=== PATIENT | male | born 1980 | race Caucasian/White ===

== ENCOUNTER → 2018-03-03 16:15 | Outpatient (CLI) | payer OTHER, SELFPAY ==
[2018-03-03 17:54] LABS: Absolute Lymphocyte Count 1.38 X10^3/ul (0.83-4.51); Absolute Neutrophil Count 5.4 X10^3/uL (2.0-7.7); Basophil# 0.03 X10^3/uL; Basophil% 0.4 % (0-1); Eosinophil# 0.35 X10^3/uL; Eosinophils% 4.4 % (0-5); Hematocrit 40.8 % (40-54); Hemoglobin 13.8 g/dl (13.0-16.5); Lymphocyte # 1.38 X10^3/ul (4.0); Lymphocyte % 17.5 % (19-41); Mean Corp Hgb Conc 33.8 g/gl (32-36); Mean Corpuscular Hgb 30.2 pg (27.0-32.0); Mean Corpuscular Volume 89.3 fL (80-94); Mean Platelet Vol. 8.5 fl (6.2-12.0); Monocyte# 0.76 X10^3/uL; Monocyte% 9.6 % (0-10); Neutrophil # 5.36 X10^3/uL (2.7-7.7); Neutrophil % 67.8 % (47-70); Platelet Count 325 K/mm3 (150-450); RBC Distribution Width SD 38.9 fl (35.1-43.9); Red Blood Count 4.57 M/mm3 (4.6-6.2); White Blood Count 7.9 K/mm3 (4.4-11.0)
[2018-03-03 17:55] LABS: POSITIVE COUNT NO; POSITIVE DIFFERENTIAL NO; POSITIVE MORPHOLOGY NO
[2018-03-03 18:23] LABS: ALB/GLOB Ratio 1.1 RATIO (0.9-2.4); AST(SGOT) 15 U/L (15-37); Alanine Aminotransfer ALT/SGPT 25 U/L (16-61); Albumin, Serum 3.8 g/dL (3.2-5.0); Alkaline Phosphatase 79 U/L (45-117); Anion Gap 9 (5-15); BUN 24 mg/dL (7-18); BUN/Creat Ratio 21.8 RATIO (10-20); Calcium,Total 8.6 mg/dL (8.5-10.1); Chloride 105 mmol/L (98-107); EST Glomerular Filtration Rate 79 mL/min (>60); Est Glom Filt Rate - Afr Amer 96 mL/min (>60); Globulin 3.6 g/dL (2.2-4.2); Glucose 95 mg/dL (74-106); Protein, Total 7.4 g/dL (6.4-8.2); Sodium Level 139 mmol/L (136-145)
--- OUTSIDE RECORDS SUMMARY | 2018-05-06 04:12 | XMS RPT_ITS ---
:1980 Author Organization [facility] Care Team Providers Name Role Phone Miguel Ángel Huffman Attending Unavailable Miguel Ángel Huffman Primary Care Unavailable Amos, Alf Admitting Unavailable Alf Trinidad Referring Unavailable Miguel Ángel Brambila Attending Unavailable Huang Restrepo Unavailable Amos, Alf Admitting Unavailable Miguel Ángel Brambila Attending Unavailable Amos, Alf Referring Unavailable Miguel Ángel Huffman Primary Care Unavailable Miguel Ángel Brambila Consulting Unavailable PROBLEMS PROBLEMS No Problem Records FoundPROCEDURES PROCEDURES No Procedure Records FoundRESULTS RESULTS DISCHARGE SUMMARY Observed: 03/05/2018 Status: F Source: [place] 3:37 PM [facility] RE[facility] Medical Records Department [facility] [address] Discharge Summary 03/05/18 1533 MR#: [id number] Acct: [id number] Name: WADE ANDRADE Rep #: [id number] : 1980 37 From: Miguel Ángel Brambila DO PCP: Miguel Ángel Huffman MD Status: ADM IN Y Location: [place] [id number] Discharge Date and Diagnosis - Problem List Patient Problems: Active and Suspected Problems Foraminal stenosis of cervical region (Acute) Cellulitis of neck (Acute) Date of Admission: 03/05/18 Date of Discharge: 03/05/18 - Primary Discharge Diagnosis Active and Suspected Problems Foraminal stenosis of cervical region (Acute) Cellulitis of neck (Acute) Hospital Course and Treatment Imaging Results: 03/05/18 08:34 MRI Cervical [Spine Cervical (Routine)] [MRI] Urgent Clinical Impression(s) from Imaging Studies Soft Tissue Neck CT 03/05/18 03:00 IMPRESSION: Multiple enlarged, dense, and hazy left level 5 lymph nodes with adjacent haziness of fat planes and swelling of the sternocleidomastoid muscle. Findings are most likely related to infectious or inflammatory adenopathy with secondary sternocleidomastoid myositis and local deep and superficial cellulitis. No drainable abscesses are seen. Consider continued CT follow-up to ensure resolution. Electronically Signed: Andrea Polo MD at 3:50 EST Tel , Service support , Cervical Spine MRI 03/05/18 08:34 IMPRESSION: C6/C7: Severe bilateral foraminal stenosis. Electronically Signed: Giuseppe Piper MD at 12:44 EST Tel , Service support , Huang Restrepo MD: infectious disease. Operations: None Procedures: None Summary of Care Provided: The patient is a 37 year old M presents with fever, chills and pain over his left lateral neck. Patient to be treated previously with amoxicillin but it clear that only to come back. Patient received Zosyn in the emergency room in the Unasyn on the floor. Patient overall improved and was seen by infectious disease. CAT scan showed some ascites as well as some lymphadenopathy. Patient did also have some overlying erythema. Concern is for cellulitis but may have been component of myositis as well. No evidence of mastoiditis. So patient will complete course of Augmentin. Patient advised to return if symptoms get worse. Patient did have some paresthesias in his hands primarily when he slapped but will go away during the day. Patient did undergo an MRI, given the concern for an epidural abscess or other acute process. MRI showed C6/7 foraminal stenosis. This was relayed to the patient and that he was not a surgical emergency but did recommend outpatient evaluation with spine surgery. Explained that surgery would be a last resort for that but would need to certainly be cleared from any infectious process before undergoing any surgery if it were necessary. [] Patient Problems: Active and Suspected Problems Foraminal stenosis of cervical region (Acute) Cellulitis of neck (Acute) - Physical Exam Vital Signs Temp Pulse Resp BP Pulse Ox 36.9 C 71 16 117/80 95 03/05/18 11:27 03/05/18 11:27 03/05/18 11:27 03/05/18 11:27 03/05/18 11:28 Oxygen Delivery Method Room Air Weight: 84.1 kg Body Mass Index (BMI) 25.1 Intake and Output for Last 24 Hours Intake Total 660 / 660 Balance 660 / 660 Laboratory Tests Past 24 Hrs WBC 6.0 3.6 L RBC 4.48 L 4.27 L Hgb 13.7 13.0 Hct 39.9 L 38.5 L WBC RBC Hgb Hct MCV MCH MCHC RDW RDW Differential Plt Count MPV Immature Gran % (Auto) Neut % (Auto) Lymph % (Auto) [place] % (Auto) Discharge Diet: No Restrictions Discharge Activity: Return to Normal Activity Call your doctor if you observe: Fever of 101 or Higher, - - increased pain, redness over left neck. Home Medications: Medications to take at Discharge Acetaminophen 1,000 mg PO TID PRN #1 tablet 03/05/18 Amoxicillin/Potassium Clav [Augmentin 875-125 Tablet] 1 each PO BID #14 tablet 03/05/18 Ibuprofen [Motrin] 600 mg PO Q6H PRN tablet 03/05/18 Following Prescrptions Were Given to Patient: Amoxicillin/Potassium Clav [Augmentin 875-125 Tablet] 1 each PO BID #14 tablet Acetaminophen 1,000 mg PO TID PRN #1 tablet PRN Reason: Pain Primary Care Physician: Miguel Ángel Huffman MD [Primary Care Provider] - Within 1 Week Please Follow Up With: Katerina Castle MD - Spinal surgery When: 1-2 months. Disposition: Home Minutes spent on discharge:: 35 Patient Condition:: Good Medical Necessity - Tobacco Use Smoking Status: Never smoker Meaningful Use Info Meaningful Use Diagnoses (Choose all that apply): None applicable Code Visit OBSV E AND M: 50673 Observation care discharge 03/05/18 1537 <Electronically signed by Miguel Ángel Brambila DO> Date Miguel Ángel Brambila DO Cosigner Signature (if applicable): Date CC: Miguel Ángel Brambila DO; Miguel Ángel Huffman MD Signed DISCHARGE INSTRUCTION Observed: 03/05/2018 Status: F Source: [place] 3:33 PM [facility] Medical Records Department [address] [place] [id number] Instructions for Home/Discharge Instructions 03/05/18 1531 MR#: [id number] Acct: [id number] Name: WADE ANDRADE Rep #: [id number] : 1980 37 From: Miguel Ángel Brambila DO PCP: Miguel Ángel Huffman MD Status: ADM IN - Discharge Diagnoses Current Active Problems: Current Active and Chronic Problems Cellulitis of neck (Acute) You will use the following diet at home:: No restrictions Your food should be the consistency of: Regular Call your doctor if you observe: Fever of 101 or Higher, - - increased pain, redness over left neck. Allergies/Adverse Reactions: Allergies No Known Allergies Allergy (Verified 03/05/18 07:36) Medications to take at Discharge Acetaminophen 1,000 mg PO TID PRN #1 tablet 03/05/18 Amoxicillin/Potassium Clav [Augmentin 875-125 Tablet] 1 each PO BID #14 tablet 03/05/18 Ibuprofen [Motrin] 600 mg PO Q6H PRN tablet 03/05/18 The following prescriptions were given: Amoxicillin/Potassium Clav [Augmentin 875-125 Tablet] 1 each PO BID #14 tablet Acetaminophen 1,000 mg PO TID PRN #1 tablet PRN Reason: Pain Primary Care Physician: Miguel Ángel Huffman MD [Primary Care Provider] - Within 1 Week Test Results: Test results from this visit will be discussed in further detail at your follow-up appointment, if applicable. Please Follow Up With: Katerina Castle MD - Spinal surgery When: 1-2 months. Proposed Discharge Date: 03/05/18 03/05/18 1533 <Electronically signed by Miguel Ángel Brambila DO> Date Miguel Ángel Brambila DO CC: Miguel Ángel Huffman MD; Huang Restrepo MD Signed CONSULTATION Observed: 03/05/2018 Status: F Source: [place] 12:07 PM [facility] Medical Records Department [address] [place] [address] Consultation 03/05/18 1155 MR#: [id number] Acct: [id number] Name: WADE ANDRADE Rep #: [id number] : 1980 37 From: Huang Restrepo MD PCP: Miguel Ángel Huffman MD Status: ADM IN Y Location: [facility] [place] Problem List (1) Cellulitis of neck Status: Acute Reason for Consult: neck cellulitis Consulted by: Dr. Brambila History of Present Illness: The patient is a 37 year old M who presented yesterday with several days of fever, chills, L neck swelling and pain, bilateral hand numbness. Reports developing flu-like illness around New Years with some fatigue, aches, dry cough, mild fever, not feeling well. Got course of amoxicillin with mild improvement. Now with L neck mass, moderate pain (3/10 in AM, 7/10 after working all day). No drainage, no dental problems. No rigors/sweats/weight loss. Also c/o 2 weeks of bilateral hand numbness, worse at night when it extends almost all the way up both arms. No weakness. Came to ED, CT neck done, given dose of zosyn, now on unasyn and MRI done this AM. Feeling a little better. Full ROS performed and neg except as noted above. - Medical History Allergies/Adverse Reactions: Allergies No Known Allergies Allergy (Verified 03/05/18 07:36) - Social History Tobacco Use: non-smoker Vital Signs Temp Pulse Resp BP Pulse Ox 98.5 F 71 16 117/80 95 03/05/18 11:27 03/05/18 11:27 03/05/18 11:27 03/05/18 11:27 03/05/18 11:28 Oxygen Delivery Method Room Air Weight: 84.1 kg Body Mass Index (BMI) 25.1 Laboratory Tests Past 24 Hrs WBC 6.0 3.6 L RBC 4.48 L 4.27 L Hgb 13.7 13.0 Hct 39.9 L 38.5 L WBC RBC Hgb Hct MCV MCH MCHC RDW RDW Differential Plt Count MPV Immature Gran % (Auto) Neut % (Auto) Lymph % (Auto) [place] % (Auto) - Other Studies Radiology: [] reviewed Other Studies: [] Route of nutrition/ use of supplements: [] Nutritional Intake: [] IV Site: [] Vaughn Catheter: [] - Physical Exam General: Alert, Oriented x3, Cooperative, No apparent distress HEENT: Atraumatic, PERRLA, EOMI Neck: Supple, - - L neck focal swelling, mild tenderness Lungs: Clear to auscultation, Normal air movement Cardiovascular: Regular rate, Regular Rhythm, No murmurs Abdomen: Soft, Non Tender, Non-Distended Extremities: No edema Skin: No rashes, Rash Present IV Site: Peripheral, without redness Musculoskeletal: No Tenderness to Palpation of Joints or Extremities, No Muscle Wasting Neurological: Cranial nerves II-XII grossly intact - Assessment/Plan Antibiotics: [] Assessment/Plan: [] Active and Suspected Problems Cellulitis of neck (Acute) Lymphadenopathy and myositis seen on CT - feeling better with unasyn. MRI pending; new paresthesias in his hands are concerning. May need neuro or spine eval depending on MRI result. Will follow, thank you. 03/05/18 1207 <Electronically signed by Huang Restrepo MD> Date Huang Restrepo MD Cosigner Signature (if applicable): Date CC: Miguel Ángel Huffman MD; Alf Trinidad MD; Huang Restrepo MD Signed SPINE CERVICAL Observed: 03/05/2018 Status: F Source: RAD[place] (ROUTINE) 8:34 AM [facility] Imaging Services [address] [place] [address] Spine Cervical (Routine) MR#: [id number] Acct: [id number] Name: WADE ANDRADE Rep #: [id number] : 1980 M 37 From: Giuseppe Piper PCP: Miguel Ángel Huffman MD Status: ADM IN Study: Spine Cervical (Routine) Date of Exam: 03/05/18 Exam# [id number] Ordering Dr: Miguel Ángel Brambila DO STUDY: MRI CERVICAL SPINE WITHOUT CONTRAST REASON FOR EXAM: Male, 37 years old. upper extremity parathesis -- bilateral arm numbness, left neck swelling. TECHNIQUE: Standardized fat and water weighted pulse sequences were obtained in the sagittal and axial planes. COMPARISON: None FINDINGS: Normal foramen magnum and brainstem-cervical cord junction. Normal craniovertebral junction. Normal anterior atlantoaxial articulation. Normal odontoid process. Normal cervical lordosis. C2-3: Normal endplates. Normal disc height, signal and morphology. Normal central canal and intervertebral neural foramina. C3-4: There is minimal disc space narrowing and endplates spondylosis. There is uncovertebral arthropathy with mild right foraminal stenosis. There is no significant central canal or left foraminal cells. C4-5: There is minimal disc space narrowing and endplates spondylosis. There is uncovertebral and facet arthropathy with mild right foraminal stenosis. There is no significant central canal or left foraminal cells. C5-6: There is minimal disc space narrowing and endplate spondylosis. There is no significant disc herniation, central canal or foraminal stenosis. C6-7: There is mild disc space narrowing and endplates spondylosis. There is minimal disc osteophyte complex without significant central canal stenosis. There is uncovertebral and facet arthropathy with severe bilateral foraminal stenosis. C7-T1: Normal endplates. Normal disc height, signal and morphology. Normal central canal and intervertebral neural foramina. Normal cervical cord. Normal visualized soft tissue structures. MRI/Spine Cervical (Routine) IMPRESSION: C6/C7: Severe bilateral foraminal stenosis. Electronically Signed: Giuseppe Piper MD at 12:44 EST Tel , Service support , CC: Miguel Ángel Huffman MD Hand Stitcher: Signed BASIC METABOLIC Collected: 03/05/2018 Status: F Source: [place] PROFILE (BMP) 8:24 AM [facility] REPOSITORY TYPE CODE TESTS RESULT OUT OF RANGE REFERENCE UNITS LAB L501.0100 74-106 mg/dL High GLU 110 Result Comment: Fasting Glucose result from 100 to 125 mg/dL suggests IMPAIRED HOMEOSTASIS per A.D.A. criteria. Please note revised GLUCOSE reference range effective 2017. LAB L501.1000 7-18 mg/dL Normal BUN 15 LAB L501.1100 0.70-1.30 mg/dL Normal CREAT,SERUM 0.94 Result Comment: The validity of the calculated GFR AND GFRAA in patients over 70 years has not been determined. Clinical correlation is essential. LAB L501.1110 >60 mL/min Normal EST GFR 95 Result Comment: Non- GFR Calc LAB L501.1115 >60 mL/min Normal EST GFR - AA 114 Result Comment: GFR Calc LAB L501.1255 ml/min Normal Estimated CRCL 115.80 LAB L501.1300 10-20 RATIO BUN/CRE Normal 15.9 LAB L501.2200 8.5-10 mg/dL Low .1 CA 7.8 LAB L501.5300 136-14 mmol/L 5 NA Normal 140 LAB L501.5600 3.5-5. mmol/L 1 K Normal 4.2 LAB L501.5900 98-107 mmol/L High CL 109 LAB L501.6100 21.0-3 mmol/L 2.0 CO2 Normal 24.0 LAB L501.6200 5-15 GAP Normal 7 Performed By: #### L500.2500 #### [facility] [address] [place], [address] CBC W/DIFF, AUTOMATED Collected: 03/05/2018 Status: F Source: [place] 8:24 AM [facility] REPOSIT[facility] TYPE CODE TESTS RESULT OUT OF RANGE REFERENCE UNITS LAB L100.1000 4.4-11.0 K/mm3 Low WBC 3.6 LAB L100.1200 4.6-6.2 M/mm3 Low RBC 4.27 LAB L100.1300 13.0-16.5 g/dl Normal HGB 13.0 LAB L100.1400 40-54 % Low HCT 38.5 LAB L100.1500 80-94 fL Normal MCV 90.2 LAB L100.1600 27.0-32.0 pg Normal MCH 30.4 LAB L100.1700 32-36 g/gl Normal MCHC 33.8 LAB L100.1810 11.6-14.6 % Normal RDW CV 12.2 LAB L100.1820 35.1-43.9 fl Normal RDW SD 39.6 LAB L100.1900 150-450 K/mm3 Normal PLT 231 LAB L100.2000 6.2-12.0 fl Normal MPV 8.1 LAB L100.2100 47-70 % Normal NEUT% 69.7 LAB L100.2200 19-41 % Low LY% 14.6 LAB L100.2300 0-10 % High MONO% 12.3 LAB L100.2400 0-5 % Normal EO% 2.8 LAB L100.2500 0-1 % Normal BASO% 0.6 LAB L100.2550 0.0-0.9 % Normal IM GRAN % 0.000 Result Comment: IG% - Immature Granulocytes (promyelocytes, myelocytes and metamyelocytes) > 1% indicates that a LEFT SHIFT is Present. LAB L100.2620 2.0-7.7 X10 3/uL Normal Absolute Neut 2.5 LAB L100.2720 0.83-4.51 X10 3/ul Low Absolute Lymph 0.52 LAB L100.4500 Normal SMEAR COMMENT COMMENT Result Comment: SLIDE SCANNED - LYMPHOPENIA NOTED. Performed By: #### L100.0100 #### [facility] [address] [place], [address] SOFT TISSUE NECK WITH Observed: 03/05/2018 Status: F Source: [place] CONTRAST 6:17 AM [facility] REPOSITORY [facility] Imaging Services [address] [place] [address] Soft Tissue Neck WITH Contrast MR#: [id number] Acct: [id number] Name: WADE ANDRADE Rep #: [id number] : 1980 M 37 From: Andrea Polo MD PCP: Miguel Ángel Huffman MD Status: ADM IN Study: Soft Tissue Neck WITH Contrast Date of Exam: 03/05/18 Exam# [id number] Ordering Dr: Raulito Layne MD STUDY: CT SOFT TISSUE NECK WITH CONTRAST REASON FOR EXAM: Male, 37 years old. Left neck swelling RADIATION DOSAGE (If Supplied By Facility): CTDIvol = ( 16.28 ) mGy, DLP = ( 613.07 ) mGycm TECHNIQUE: The patient was scanned in a multi-detector CT scanner. High resolution transaxial imaging was performed following intravenous administration of 80 ml of Isovue 300 contrast material. Sagittal and coronal images were reconstructed. Individualized dose optimization techniques were used for this CT. COMPARISON: None. FINDINGS: Normal bilateral parotid glands. Normal bilateral rubber roller grinder spaces. Normal bilateral parapharyngeal spaces. Normal bilateral carotid spaces. Normal bilateral sublingual and submandibular glands and spaces. Normal visualized nasopharynx. Normal retropharyngeal space. Normal perivertebral space. Normal visualized bilateral faucial tonsils. The visualized tongue, tongue base and oropharynx are normal. Multiple dense and somewhat hazy enlarged left level 5 lymph nodes are noted, the largest measuring 17 x 11 mm on image 70 of series 2. There is adjacent haziness of fat planes as well as swelling of the adjacent sternocleidomastoid muscle. There is induration of subcutaneous fat at the level of these abnormalities as well. Normal epiglottis, bilateral vallecula and hypopharynx. The pre-epiglottic and paraglottic adipose spaces are normal. Normal visualized bilateral piriform sinuses, aryepiglottic folds, vocal cords, and arytenoid-cricoid articulations. Normal subglottic trachea. Normal bilateral lobes of the thyroid gland. Normal visualized pulmonary apices. Normal visualized paranasal sinuses. Normal visualized cervical spine. CT/Soft Tissue Neck WITH Contrast IMPRESSION: Multiple enlarged, dense, and hazy left level 5 lymph nodes with adjacent haziness of fat planes and swelling of the sternocleidomastoid muscle. Findings are most likely related to infectious or inflammatory adenopathy with secondary sternocleidomastoid myositis and local deep and superficial cellulitis. No drainable abscesses are seen. Consider continued CT follow-up to ensure resolution. Electronically Signed: Andrea Polo MD at 3:50 EST Tel , Service support , CC: Miguel Ángel Huffman MD; Raulito Layne MD Hand Stitcher: Signed BASIC METABOLIC Collected: 03/05/2018 Status: F Source: [place] PROFILE (BMP) 1:55 AM [facility] REPOSITORY TYPE CODE TESTS RESULT OUT OF RANGE REFERENCE UNITS LAB L501.0100 74-106 mg/dL High GLU 127 Result Comment: Fasting Glucose result greater than or equal to 126 mg/dL suggests DIABETES MELLITUS per A.D.A. criteria. Please note revised GLUCOSE reference range effective 2017. LAB L501.1000 7-18 mg/dL Normal BUN 17 LAB L501.1100 0.70-1.30 mg/dL Normal CREAT,SERUM 0.95 Result Comment: The validity of the calculated GFR AND GFRAA in patients over 70 years has not been determined. Clinical correlation is essential. LAB L501.1110 >60 mL/min Normal EST GFR 94 LAB L501.1115 >60 mL/min Normal EST GFR - AA 114 LAB L501.1300 10-20 RATIO Normal BUN/CRE 17.9 LAB L501.2200 8.5-10.1 mg/dL Low CA 8.1 LAB L501.5300 136-145 mmol/L Normal NA 142 LAB L501.5600 3.5-5.1 mmol/L Normal K 3.7 LAB L501.5900 98-107 mmol/L High CL 109 LAB L501.6100 21.0-32.0 mmol/L Normal CO2 24.0 LAB L501.6200 5-15 Normal GAP 9 Performed By: #### L500.2500 #### [facility] [address] [place], [place], [address] CBC W/DIFF, AUTOMATED Collected: 03/05/2018 Status: F Source: [place] 1:55 AM [facility] REPOSIT[facility] TYPE CODE TESTS RESULT OUT OF RANGE REFERENCE UNITS LAB L100.1000 4.4-11.0 K/mm3 Normal WBC 6.0 LAB L100.1200 4.6-6.2 M/mm3 Low RBC 4.48 LAB L100.1300 13.0-16.5 g/dl Normal HGB 13.7 LAB L100.1400 40-54 % Low HCT 39.9 LAB L100.1500 80-94 fL Normal MCV 89.1 LAB L100.1600 27.0-32.0 pg Normal MCH 30.6 LAB L100.1700 32-36 g/gl Normal MCHC 34.3 LAB L100.1810 11.6-14.6 % Normal RDW CV 12.3 LAB L100.1820 35.1-43.9 fl Normal RDW SD 39.6 LAB L100.1900 150-450 K/mm3 Normal PLT 266 LAB L100.2000 6.2-12.0 fl Normal MPV 8.6 LAB L100.2100 47-70 % High NEUT% 77.4 LAB L100.2200 19-41 % Low LY% 8.1 LAB L100.2300 0-10 % High MONO% 11.5 LAB L100.2400 0-5 % Normal EO% 2.5 LAB L100.2500 0-1 % Normal BASO% 0.3 LAB L100.2550 0.0-0.9 % Normal IM GRAN % 0.200 Result Comment: IG% - Immature Granulocytes (promyelocytes, myelocytes and metamyelocytes) > 1% indicates that a LEFT SHIFT is Present. LAB L100.2620 2.0-7.7 X10 3/uL Normal Absolute Neut 4.7 LAB L100.2720 0.83-4.51 X10 3/ul Low Absolute Lymph 0.49 Performed By: #### L100.0100 #### [facility] [place], [address] CBC W/DIFF, AUTOMATED Collected: 03/03/2018 Status: F Source: [place] 4:18 PM [facility] REPOSITORY TYPE CODE TESTS RESULT OUT OF RANGE REFERENCE UNITS LAB L100.1000 4.4-11.0 K/mm3 Normal WBC 7.9 LAB L100.1200 4.6-6.2 M/mm3 Low RBC 4.57 LAB L100.1300 13.0-16.5 g/dl Normal HGB 13.8 LAB L100.1400 40-54 % Normal HCT 40.8 LAB L100.1500 80-94 fL Normal MCV 89.3 LAB L100.1600 27.0-32.0 pg Normal MCH 30.2 LAB L100.1700 32-36 g/gl Normal MCHC 33.8 LAB L100.1810 11.6-14.6 % Normal RDW CV 12.0 LAB L100.1820 35.1-43.9 fl Normal RDW SD 38.9 LAB L100.1900 150-450 K/mm3 Normal PLT 325 LAB L100.2000 6.2-12.0 fl Normal MPV 8.5 LAB L100.2100 47-70 % Normal NEUT% 67.8 LAB L100.2200 19-41 % Low LY% 17.5 LAB L100.2300 0-10 % Normal MONO% 9.6 LAB L100.2400 0-5 % Normal EO% 4.4 LAB L100.2500 0-1 % Normal BASO% 0.4 LAB L100.2550 0.0-0.9 % Normal IM GRAN % 0.300 Result Comment: IG% - Immature Granulocytes (promyelocytes, myelocytes and metamyelocytes) > 1% indicates that a LEFT SHIFT is Present. LAB L100.2620 2.0-7.7 X10 3/uL Normal Absolute Neut 5.4 LAB L100.2720 0.83-4.51 X10 3/ul Normal Absolute Lymph 1.38 Performed By: #### L100.0100, L500.4050 #### [facility] [address] [place], [place], [address] COMPREHENSIVE METABOLIC Collected: 03/03/2018 Status: F Source: RAD[place] ZIEGLER 4:18 PM [facility] REPOSITORY TYPE CODE TESTS RESULT OUT OF RANGE REFERENCE UNITS LAB L501.0100 74-106 mg/dL Normal GLU 95 Result Comment: Please note revised GLUCOSE reference range effective 2017. LAB L501.1000 7-18 mg/dL High BUN 24 LAB L501.1100 0.70-1.30 mg/dL Normal CREAT,SERUM 1.10 Result Comment: The validity of the calculated GFR AND GFRAA in patients over 70 years has not been determined. Clinical correlation is essential. LAB L501.1110 >60 mL/min Normal EST GFR 79 Result Comment: Non- GFR Calc LAB L501.1115 >60 mL/min Normal EST GFR - AA 96 Result Comment: GFR Calc LAB L501.1300 10-20 RATIO High BUN/CRE 21.8 LAB L501.1500 6.4-8.2 g/dL T Normal PROT 7.4 LAB L501.1800 3.2-5.0 g/dL Normal ALB 3.8 LAB L501.1950 2.2-4.2 g/dL Normal GLOB 3.6 LAB L501.2000 0.9-2.4 RATIO Normal A/G 1.1 LAB L501.2200 8.5-10.1 mg/dL CA Normal 8.6 LAB L501.4100 15-37 U/L Normal AST 15 LAB L501.4305 45-117 U/L Normal ALK P 79 LAB L501.4405 16-61 U/L Normal ALT 25 LAB L501.4600 0.20-1.00 mg/dL T Normal BILI 0.60 LAB L501.5300 136-145 mmol/L NA Normal 139 LAB L501.5600 3.5-5.1 mmol/L K Normal 4.0 LAB L501.5900 98-107 mmol/L CL Normal 105 LAB L501.6100 21.0-32.0 mmol/L Normal CO2 25.0 LAB L501.6200 5-15 Normal GAP 9 Performed By: #### L100.0100, L500.4050 #### [facility] [address] [place], [address] CRP Collected: 03/03/2018 Status: F Source: RAD[place] 4:18 PM [facility] TYPE CODE TESTS RESULT OUT OF RANGE REFERENCE UNITS LAB L501.6710 0.0-3.0 mg/L High 21.30 C-REACTIVE PROT Result Comment: C-Reactive Protein (CRP) provides useful information for the diagnosis, therapy and monitoring of inflammatory processes and associated diseases. For the evaluation of Relative Risk for Cardiovascular Disease, a High Sensitivity CRP (HSCRP) should be ordered. Performed By: #### L501.6710 #### [facility] [address] [place], [address] ALLERGIES ALLERGIES DATE TYPE / CODE NAME / CODE REACTION SEVERITY SOURCE 03/05/2018 Drug No Known Unknown [facility] Allergy/4160 Allergies/F00 Hospital 11906(SNOMED [id number](RXNOR Repository CT) M) ENCOUNTERS ENCOUNTERS ADMIT/DISCHARGE ACCOUNT ADMITTING ENCOUNTER LOCATION SOURCE NUMBER CLASS 03/05/2018/ [id number] Amos, Ambulatory Rad[facility] Radha 9 2 [facility] [place][id number]: Repository [id number]: 1 03/05/2018 [id number] Amos, Ambulatory BMSBuilding:B [place] 7 [facility] Repository 03/03/2018 [id number] Ambulatory Radha Radha 1 [facility] ing:MFPLAB Repository PAYERS PAYERS ENCOUNTER GUARANTOR PAYER SUBSCRIBER SOURCE 03/05/2018 WADE Arthur [place] [id number] MILLER Insurance:MEDICAL GASSERDOB: [facility] [id number] Number: Repository 37548Zzr: [phone] [id number] [phone] (HP) Date:[id number] [address] [place] [phone]: 03/05/2018 Secondary NOT GIVENUNK Radha Insurance:SELF PAY [facility] Number: Effective Repository Date:2018-03-05 03/05/2018 WADE Hernandez Primary MERCEDES Arthur Radha [id number] MILLER Insurance:ANTHEMPolic GASSERDOB: Community [employer] y Number: [id number], [place] [id number] Repository 82288Njt: [phone]) Date:4320-05-43PC [phone] () [id number], [place] [address]ZO: 03/05/2018 Secondary NOT GIVENUNK [place] Insurance:SELF PAY [facility] Number: Effective Repository Date:2018-03-05 03/03/2018 Wade Hernandez Primary Mercedes Radha [id number] E Insurance:ANTHEMPolic GasserDOB: [facility] y Number: [id number], [place] [id number] Repository 36167Zzu: [phone]) Date:3261-50-35UU [phone] () [id number], [place] [address]BA: 03/03/2018 Secondary NOT GIVENUNK Radha Insurance:SELF PAY [facility] Number: Effective Repository Date:2018-03-03
== END ==
PROVIDERS: Visit Provider Family Medicine
DX: L04.9 Acute lymphadenitis, unspecified (principal)
CPT/HCPCS: 36415; 80053; 85025; 86140

== ENCOUNTER 2018-03-05 01:46 | Observation (INO) | payer OTHER, SELFPAY ==
--- NOTE | 2018-03-05 03:00 | CT_ITS ---
STUDY: CT SOFT TISSUE NECK WITH CONTRAST REASON FOR EXAM: Male, 37 years old. Left neck swelling RADIATION DOSAGE (If Supplied By Facility): CTDIvol = ( 16.28 ) mGy, DLP = ( 613.07 ) mGycm TECHNIQUE: The patient was scanned in a multi-detector CT scanner. High resolution transaxial imaging was performed following intravenous administration of 80 ml of Isovue 300 contrast material. Sagittal and coronal images were reconstructed. Individualized dose optimization techniques were used for this CT. COMPARISON: None. FINDINGS: Normal bilateral parotid glands. Normal bilateral ropewalk rope maker spaces. Normal bilateral parapharyngeal spaces. Normal bilateral carotid spaces. Normal bilateral sublingual and submandibular glands and spaces. Normal visualized nasopharynx. Normal retropharyngeal space. Normal perivertebral space. Normal visualized bilateral faucial tonsils. The visualized tongue, tongue base and oropharynx are normal. Multiple dense and somewhat hazy enlarged left level 5 lymph nodes are noted, the largest measuring 17 x 11 mm on image 70 of series 2. There is adjacent haziness of fat planes as well as swelling of the adjacent sternocleidomastoid muscle. There is induration of subcutaneous fat at the level of these abnormalities as well. Normal epiglottis, bilateral vallecula and hypopharynx. The pre-epiglottic and paraglottic adipose spaces are normal. Normal visualized bilateral piriform sinuses, aryepiglottic folds, vocal cords, and arytenoid-cricoid articulations. Normal subglottic trachea. Normal bilateral lobes of the thyroid gland. Normal visualized pulmonary apices. Normal visualized paranasal sinuses. Normal visualized cervical spine. CT/Soft Tissue Neck WITH Contrast IMPRESSION: Multiple enlarged, dense, and hazy left level 5 lymph nodes with adjacent haziness of fat planes and swelling of the sternocleidomastoid muscle. Findings are most likely related to infectious or inflammatory adenopathy with secondary sternocleidomastoid myositis and local deep and superficial cellulitis. No drainable abscesses are seen. Consider continued CT follow-up to ensure resolution. Electronically Signed: Andrea Polo MD at 3:50 EST Tel , Service support ,
[2018-03-05 06:00] VITALS: BP 107/71; PULSE 69; RESP 16; TEMP 36.7; O2SAT 95
[2018-03-05 06:55] LABS: BUN 17 mg/dL (7-18); BUN/Creat Ratio 17.9 RATIO (10-20); Creatinine, Serum 0.95 mg/dL (0.70-1.30); EST Glomerular Filtration Rate 94 mL/min (>60); Est Glom Filt Rate - Afr Amer 114 mL/min (>60); Glucose 127 mg/dL (74-106)
[2018-03-05 06:56] LABS: Absolute Lymphocyte Count 0.49 X10^3/ul (0.83-4.51); Absolute Neutrophil Count 4.7 X10^3/uL (2.0-7.7); Anion Gap 9 (5-15); Basophil# 0.02 X10^3/uL; Basophil% 0.3 % (0-1); Calcium,Total 8.1 mg/dL (8.5-10.1); Chloride 109 mmol/L (98-107); Differential Indicated SCAN CRITERIA MET; Eosinophil# 0.15 X10^3/uL; Eosinophils% 2.5 % (0-5); Hematocrit 39.9 % (40-54); Hemoglobin 13.7 g/dl (13.0-16.5); Lymphocyte # 0.49 X10^3/ul (4.0); Lymphocyte % 8.1 % (19-41); Mean Corp Hgb Conc 34.3 g/gl (32-36); Mean Corpuscular Hgb 30.6 pg (27.0-32.0); Mean Corpuscular Volume 89.1 fL (80-94); Mean Platelet Vol. 8.6 fl (6.2-12.0); Monocyte# 0.69 X10^3/uL; Monocyte% 11.5 % (0-10); Neutrophil # 4.66 X10^3/uL (2.7-7.7); Neutrophil % 77.4 % (47-70); POSITIVE COUNT NO; POSITIVE DIFFERENTIAL YES; POSITIVE MORPHOLOGY NO; Platelet Count 266 K/mm3 (150-450); Potassium 3.7 mmol/L (3.5-5.1); RBC Distribution Width CV 12.3 % (11.6-14.6); RBC Distribution Width SD 39.6 fl (35.1-43.9); Red Blood Count 4.48 M/mm3 (4.6-6.2); Sodium Level 142 mmol/L (136-145)
[2018-03-05 07:05] VITALS: RESP 16; BMI 25.1
[2018-03-05 07:19] VITALS: BMI 25.0
[2018-03-05] MEDS: Piperacil/Tazobactam 4.5 GM in NS100 MBP IV (07:45)
--- NOTE | 2018-03-05 08:27 | PCM.PN.HOSP ---
Patient Problems: Active and Suspected Problems Cellulitis of neck (Acute) Subjective: States that around New Year's, patient was having fevers, and then 2 weeks and patient developed pain and swelling on the left aspect of his neck. Patient received amoxicillin which he had completed but did not help. Patient was admitted for neck cellulitis and started on Unasyn. Patient states that since he has been sick, he has been having pain and weakness in his arms when he awakes. He has never experienced that problem before. He states that when he goes to work the symptoms resolved. Vitals/I&O's: Vital Signs Temp Pulse Resp BP Pulse Ox 36.7 C 69 16 107/71 95 03/05/18 06:00 03/05/18 06:00 03/05/18 07:05 03/05/18 06:00 03/05/18 06:00 Oxygen Delivery Method Room Air Weight: 84.1 kg Body Mass Index (BMI) 25.1 General: Alert, No apparent distress HEENT: Atraumatic, Normocephalic, TM's Clear, EAC Clear Oral: Moist Mucosa, No Gingival or Mucosal Lesions/ Ulcerations Neck: - - Tender at the sternocleidomastoid at the junction of the mastoid itself. No mastoid tenderness. Lungs: Clear to auscultation, Normal air movement Cardiovascular: Regular rate, No murmurs Abdomen: Bowel Sounds Present, Soft, Non Tender Extremities: No edema, No Calf Tenderness Skin: No rashes, No breakdown Musculoskeletal: No Tenderness to Palpation of Joints or Extremities, No Muscle Wasting Neurological: Deep Tendon Reflexes 2+/4 and Symmetrical, Motor Exam 5/5 strength throughout Psych/Mental Status: Normal Affect, Appropriate Laboratory Results 03/05/18 01:55: WBC 6.0, RBC 4.48 L, Hgb 13.7, Hct 39.9 L, MCV 89.1, MCH 30.6, MCHC 34.3, RDW 12.3, RDW Differential 39.6, Plt Count 266, MPV 8.6, Immature Gran % (Auto) 0.200, Neut % (Auto) 77.4 H, Lymph % (Auto) 8.1 L, [place] % (Auto) 11.5 H, Eos % (Auto) 2.5, Baso % (Auto) 0.3, Absolute Neuts (auto) 4.7, Absolute Lymphs (auto) 0.49 L, Total Counted Not Reportable 03/05/18 01:55: Sodium 142, Potassium 3.7, Chloride 109 H, Carbon Dioxide 24.0, Anion Gap 9, BUN 17, Creatinine 0.95, Est GFR (MDRD) Af Amer 114, Est GFR (MDRD) Non-Af 94, BUN/Creatinine Ratio 17.9, Glucose 127 H, Calcium 8.1 L Current Medications Enoxaparin Sodium (Lovenox) 40 mg SC DAILY@0600 ERASMO Ampicillin Sodium/Sulbactam (Sodium 3 gm/ Sodium Chloride) 112 mls @ 150 mls/hr IV Q6 ERASMO Sodium Chloride () 1,000 mls @ 100 mls/hr IV .Q10H ERASMO Stop: 03/06/18 08:00 Ibuprofen (Motrin) 600 mg PO Q6H PRN PRN Reason: PAIN Medical Necessity - Tobacco Use Smoking Status: Never smoker Assessment/Plan All Active Problems Cellulitis of neck (Acute) 1. Left neck cellulitis CAT scan reflecting lymphadenopathy as well as possible sternocleidomastoid myositis. Patient essentially failed outpatient antibiotics with amoxicillin. Patient does note some improvement since arrival. Infectious disease on consultation 2. Upper extremity paresthesias Additionally weak as well when he wakes up. He describes involving all his fingers and not localized to certain digits. Given the patient's atypical presentation, I ordered an MRI of his cervical spine to rule out any other pathology there. 3. DVT prophylaxis with Lovenox Code Visit Inpatient E&M: 15212 [facility] Hosp L3
--- NOTE | 2018-03-05 08:34 | MRI_ITS ---
STUDY: MRI CERVICAL SPINE WITHOUT CONTRAST REASON FOR EXAM: Male, 37 years old. upper extremity parathesis -- bilateral arm numbness, left neck swelling. TECHNIQUE: Standardized fat and water weighted pulse sequences were obtained in the sagittal and axial planes. COMPARISON: None FINDINGS: Normal foramen magnum and brainstem-cervical cord junction. Normal craniovertebral junction. Normal anterior atlantoaxial articulation. Normal odontoid process. Normal cervical lordosis. C2-3: Normal endplates. Normal disc height, signal and morphology. Normal central canal and intervertebral neural foramina. C3-4: There is minimal disc space narrowing and endplates spondylosis. There is uncovertebral arthropathy with mild right foraminal stenosis. There is no significant central canal or left foraminal cells. C4-5: There is minimal disc space narrowing and endplates spondylosis. There is uncovertebral and facet arthropathy with mild right foraminal stenosis. There is no significant central canal or left foraminal cells. C5-6: There is minimal disc space narrowing and endplate spondylosis. There is no significant disc herniation, central canal or foraminal stenosis. C6-7: There is mild disc space narrowing and endplates spondylosis. There is minimal disc osteophyte complex without significant central canal stenosis. There is uncovertebral and facet arthropathy with severe bilateral foraminal stenosis. C7-T1: Normal endplates. Normal disc height, signal and morphology. Normal central canal and intervertebral neural foramina. Normal cervical cord. Normal visualized soft tissue structures. MRI/Spine Cervical (Routine) IMPRESSION: C6/C7: Severe bilateral foraminal stenosis. Electronically Signed: Giuseppe Piper MD at 12:44 EST Tel , Service support ,
[2018-03-05 08:46] LABS: Absolute Lymphocyte Count 0.52 X10^3/ul (0.83-4.51); Absolute Neutrophil Count 2.5 X10^3/uL (2.0-7.7); Basophil# 0.02 X10^3/uL; Basophil% 0.6 % (0-1); Eosinophils% 2.8 % (0-5); Hematocrit 38.5 % (40-54); Lymphocyte # 0.52 X10^3/ul (4.0); Lymphocyte % 14.6 % (19-41); Mean Corp Hgb Conc 33.8 g/gl (32-36); Mean Corpuscular Hgb 30.4 pg (27.0-32.0); Mean Corpuscular Volume 90.2 fL (80-94); Mean Platelet Vol. 8.1 fl (6.2-12.0); Monocyte# 0.44 X10^3/uL; Monocyte% 12.3 % (0-10); Neutrophil # 2.49 X10^3/uL (2.7-7.7); Neutrophil % 69.7 % (47-70); Platelet Count 231 K/mm3 (150-450); RBC Distribution Width CV 12.2 % (11.6-14.6); RBC Distribution Width SD 39.6 fl (35.1-43.9); Red Blood Count 4.27 M/mm3 (4.6-6.2); White Blood Count 3.6 K/mm3 (4.4-11.0)
[2018-03-05 08:53] LABS: Anion Gap 7 (5-15); BUN 15 mg/dL (7-18); BUN/Creat Ratio 15.9 RATIO (10-20); Calcium,Total 7.8 mg/dL (8.5-10.1); Chloride 109 mmol/L (98-107); Creatinine, Serum 0.94 mg/dL (0.70-1.30); EST Glomerular Filtration Rate 95 mL/min (>60); Est Glom Filt Rate - Afr Amer 114 mL/min (>60); Glucose 110 mg/dL (74-106); Potassium 4.2 mmol/L (3.5-5.1); Sodium Level 140 mmol/L (136-145)
[2018-03-05] MEDS: Ibuprofen 600 MG Tablet PO ×2 (08:53→15:43)
[2018-03-05] MEDS: Enoxaparin 40 MG/0.4 ML Syringe SC (08:53)
[2018-03-05 08:54] LABS: Differential Indicated SCAN CRITERIA MET; POSITIVE COUNT NO; POSITIVE DIFFERENTIAL YES; POSITIVE MORPHOLOGY NO
[2018-03-05] MEDS: 0.9% Normal Saline 1,000 ML 100 ML IV (08:54)
[2018-03-05 11:27] VITALS: BP 117/80; PULSE 71; RESP 16; TEMP 36.9; O2SAT 99
[2018-03-05 11:28] VITALS: O2SAT 95
--- NOTE | 2018-03-05 12:05 | CON.PCM_ITS ---
Problem List (1) Cellulitis of neck Status: Acute Reason for Consult: neck cellulitis Consulted by: Dr. Brambila History of Present Illness: The patient is a 37 year old M who presented yesterday with several days of fever, chills, L neck swelling and pain, bilateral hand numbness. Reports developing flu-like illness around New Years with some fatigue, aches, dry cough, mild fever, not feeling well. Got course of amoxicillin with mild impr ovement. Now with L neck mass, moderate pain (3/10 in AM, 7/10 after working all day). No drainage, no dental problems. No rigors/sweats/weight loss. Also c/o 2 weeks of bilateral hand numbness, worse at night when it extends almost all the way up both arms. No weakness. Came to ED, CT neck done, given dose of zosyn, now on unasyn and MRI done this AM. Feeling a little better. Full ROS performed and neg except as noted above. - Medical History Allergies/Adverse Reactions: Allergies No Known Allergies Allergy (Verified 03/05/18 07:36) - Social History Tobacco Use: non-smoker Vital Signs Temp Pulse Resp BP Pulse Ox 98.5 F 71 16 117/80 95 03/05/18 11:27 03/05/18 11:27 03/05/18 11:27 03/05/18 11:27 03/05/18 11:28 Oxygen Delivery Method Room Air Weight: 84.1 kg Body Mass Index (BMI) 25.1 Laboratory Tests Past 24 Hrs 03/05/18 03/05/18 03/05/18 01:55 01:55 08:24 WBC 6.0 3.6 L RBC 4.48 L 4.27 L Hgb 13.7 13.0 Hct 39.9 L 38.5 L MCV 89.1 90.2 MCH 30.6 30.4 MCHC 34.3 33.8 RDW 12.3 12.2 RDW Differential 39.6 39.6 Plt Count 266 231 MPV 8.6 8.1 Immature Gran % (Auto) 0.200 0.000 Neut % (Auto) 77.4 H 69.7 Lymph % (Auto) 8.1 L 14.6 L [place] % (Auto) 11.5 H 12.3 H Eos % (Auto) 2.5 2.8 Baso % (Auto) 0.3 0.6 Absolute Neuts (auto) 4.7 2.5 Absolute Lymphs (auto) 0.49 L 0.52 L Total Counted Not Reportable Not Reportable Differential Comment COMMENT Sodium 142 Potassium 3.7 Chloride 109 H Carbon Dioxide 24.0 Anion Gap 9 BUN 17 Creatinine 0.95 Estim Creat Clear Calc Est GFR (MDRD) Af Amer 114 Est GFR (MDRD) Non-Af 94 BUN/Creatinine Ratio 17.9 Glucose 127 H Calcium 8.1 L 03/05/18 08:24 WBC RBC Hgb Hct MCV MCH MCHC RDW RDW Differential Plt Count MPV Immature Gran % (Auto) Neut % (Auto) Lymph % (Auto) [place] % (Auto) Eos % (Auto) Baso % (Auto) Absolute Neuts (auto) Absolute Lymphs (auto) Total Counted Differential Comment Sodium 140 Potassium 4.2 Chloride 109 H Carbon Dioxide 24.0 Anion Gap 7 BUN 15 Creatinine 0.94 Estim Creat Clear Calc 115.80 Est GFR (MDRD) Af Amer 114 Est GFR (MDRD) Non-Af 95 BUN/Creatinine Ratio 15.9 Glucose 110 H Calcium 7.8 L - Other Studies Radiology: [] reviewed Other Studies: [] Route of nutrition/ use of supplements: [] Nutritional Intake: [] IV Site: [] Vaughn Catheter: [] - Physical Exam General: Alert, Oriented x3, Cooperative, No apparent distress HEENT: Atraumatic, PERRLA, EOMI Neck: Supple, - - L neck focal swelling, mild tenderness Lungs: Clear to auscultation, Normal air movement Cardiovascular: Regular rate, Regular Rhythm, No murmurs Abdomen: Soft, Non Tender, Non-Distended Extremities: No edema Skin: No rashes, Rash Present IV Site: Peripheral, without redness Musculoskeletal: No Tenderness to Palpation of Joints or Extremities, No Muscle Wasting Neurological: Cranial nerves II-XII grossly intact - Assessment/Plan Antibiotics: [] Assessment/Plan: [] Active and Suspected Problems Cellulitis of neck (Acute) Lymphadenopathy and myositis seen on CT - feeling better with unasyn. MRI pending; new paresthesias in his hands are concerning. May need neuro or spine eval depending on MRI result. Will follow, thank you.
--- NOTE | 2018-03-05 15:00 | CASEMGMT ---
RN CM LOCAL AREA NETWORK ADMINISTRATOR CM to room to meet with patient for initial transition planning/care coordination assessment. RN CLAY introduced self and role at [facility]. Pt voices understanding and consents to assessment at this time. Pt resting in bed in no distress at this time. Pt is A/O at this time and answers all questions appropriately. Care providers, pharmacy, and demographics verified/updated at this time. PCP: Miguel Ángel Huffman Specialists: None Preferred Pharmacy: [facility] [place] Insurance: [facility] Prescription Benefit: [employer] Living Will/HPOA: Has both LW and HCPOA, who is his , Darby. LNOK: Living Arrangements: Lives at home with his . Independent. Transportation: Pt states drives self and states no transportation concerns at this time. DME: Denies using any DME and denies needs. HHC/SNF: Has never used HHC or been to a SNF. No needs identified. PLAN: Home Pt wishes to return home and states has no concerns with going home at time of discharge. CM to follow for any discharge planning/needs. Pt voices no further concerns/needs at this time. Humberto SHAVER RN, CM
--- NOTE | 2018-03-05 15:33 | DCINST_ITS ---
- Discharge Diagnoses Current Active Problems: Current Active and Chronic Problems Cellulitis of neck (Acute) You will use the following diet at home:: No restrictions Your food should be the consistency of: Regular Call your doctor if you observe: Fever of 101 or Higher, - - increased pain, redness over left neck. Allergies/Adverse Reactions: Allergies No Known Allergies Allergy (Verified 03/05/18 07:36) Medications to take at Discharge Acetaminophen 1,000 mg PO TID PRN #1 tablet 03/05/18 Amoxicillin/Potassium Clav [Augmentin 875-125 Tablet] 1 each PO BID #14 tablet 03/05/18 Ibuprofen [Motrin] 600 mg PO Q6H PRN tablet 03/05/18 The following prescriptions were given: Amoxicillin/Potassium Clav [Augmentin 875-125 Tablet] 1 each PO BID #14 tablet Acetaminophen 1,000 mg PO TID PRN #1 tablet PRN Reason: Pain Primary Care Physician: Miguel Ángel Huffman MD [Primary Care Provider] - Within 1 Week Test Results: Test results from this visit will be discussed in further detail at your follow- up appointment, if applicable. Please Follow Up With: Katerina Castle MD - Spinal surgery When: 1-2 months. Proposed Discharge Date: 03/05/18
--- NOTE | 2018-03-05 15:37 | DS.PCM_ITS ---
Discharge Date and Diagnosis - Problem List Patient Problems: Active and Suspected Problems Foraminal stenosis of cervical region (Acute) Cellulitis of neck (Acute) Date of Admission: 03/05/18 Date of Discharge: 03/05/18 - Primary Discharge Diagnosis Active and Suspected Problems Foraminal stenosis of cervical region (Acute) Cellulitis of neck (Acute) Hospital Course and Treatment Imaging Results: 03/05/18 08:34 MRI Cervical [Spine Cervical (Routine)] [MRI] Urgent Clinical Impression(s) from Imaging Studies Soft Tissue Neck CT 03/05/18 03:00 IMPRESSION: Multiple enlarged, dense, and hazy left level 5 lymph nodes with adjacent haziness of fat planes and swelling of the sternocleidomastoid muscle. Findings are most likely related to infectious or inflammatory adenopathy with secondary sternocleidomastoid myositis and local deep and superficial cellulitis. No drainable abscesses are seen. Consider continued CT follow-up to ensure resolution. Electronically Signed: Andrea Polo MD at 3:50 EST Tel , Service support , Cervical Spine MRI 03/05/18 08:34 IMPRESSION: C6/C7: Severe bilateral foraminal stenosis. Electronically Signed: Giuseppe Piper MD at 12:44 EST Tel , Service support , Huang Restrepo MD: infectious disease. Operations: None Procedures: None Summary of Care Provided: The patient is a 37 year old M presents with fever, chills and pain over his left lateral neck. Patient to be treated previously with amoxicillin but it clear that only to come back. Patient received Zosyn in the emergency room in the Unasyn on the floor. Patient overall improved and was seen by infectious disease. CAT scan showed some ascites as well as some lymphadenopathy. Patient did also have some overlying erythema. Concern is for cellulitis but may have been component of myositis as well. No evidence of mastoiditis. So patient will complete course of Augmentin. Patient advised to return if symptoms get worse. Patient did have some paresthesias in his hands primarily when he slapped but will go away during the day. Patient did undergo an MRI, given the concern for an epidural abscess or other acute process. MRI showed C6/7 foraminal stenosis. This was relayed to the patient and that he was not a surgical emergency but did recommend outpatient evaluation with spine surgery. Explained that surgery would be a last resort for that but would need to certainly be cleared from any infectious process before undergoing any surgery if it were necessary. [] Patient Problems: Active and Suspected Problems Foraminal stenosis of cervical region (Acute) Cellulitis of neck (Acute) - Physical Exam Vital Signs Temp Pulse Resp BP Pulse Ox 36.9 C 71 16 117/80 95 03/05/18 11:27 03/05/18 11:27 03/05/18 11:27 03/05/18 11:27 03/05/18 11:28 Oxygen Delivery Method Room Air Weight: 84.1 kg Body Mass Index (BMI) 25.1 Intake and Output for Last 24 Hours 03/03/18 03/04/18 03/05/18 23:59 23:59 23:59 Intake Total 660 / 660 Balance 660 / 660 Laboratory Tests Past 24 Hrs 03/05/18 03/05/18 03/05/18 01:55 01:55 08:24 WBC 6.0 3.6 L RBC 4.48 L 4.27 L Hgb 13.7 13.0 Hct 39.9 L 38.5 L MCV 89.1 90.2 MCH 30.6 30.4 MCHC 34.3 33.8 RDW 12.3 12.2 RDW Differential 39.6 39.6 Plt Count 266 231 MPV 8.6 8.1 Immature Gran % (Auto) 0.200 0.000 Neut % (Auto) 77.4 H 69.7 Lymph % (Auto) 8.1 L 14.6 L [place] % (Auto) 11.5 H 12.3 H Eos % (Auto) 2.5 2.8 Baso % (Auto) 0.3 0.6 Absolute Neuts (auto) 4.7 2.5 Absolute Lymphs (auto) 0.49 L 0.52 L Total Counted Not Reportable Not Reportable Differential Comment COMMENT Sodium 142 Potassium 3.7 Chloride 109 H Carbon Dioxide 24.0 Anion Gap 9 BUN 17 Creatinine 0.95 Estim Creat Clear Calc Est GFR (MDRD) Af Amer 114 Est GFR (MDRD) Non-Af 94 BUN/Creatinine Ratio 17.9 Glucose 127 H Calcium 8.1 L 03/05/18 08:24 WBC RBC Hgb Hct MCV MCH MCHC RDW RDW Differential Plt Count MPV Immature Gran % (Auto) Neut % (Auto) Lymph % (Auto) [place] % (Auto) Eos % (Auto) Baso % (Auto) Absolute Neuts (auto) Absolute Lymphs (auto) Total Counted Differential Comment Sodium 140 Potassium 4.2 Chloride 109 H Carbon Dioxide 24.0 Anion Gap 7 BUN 15 Creatinine 0.94 Estim Creat Clear Calc 115.80 Est GFR (MDRD) Af Amer 114 Est GFR (MDRD) Non-Af 95 BUN/Creatinine Ratio 15.9 Glucose 110 H Calcium 7.8 L Discharge Diet: No Restrictions Discharge Activity: Return to Normal Activity Call your doctor if you observe: Fever of 101 or Higher, - - increased pain, redness over left neck. Home Medications: Medications to take at Discharge Acetaminophen 1,000 mg PO TID PRN #1 tablet 03/05/18 Amoxicillin/Potassium Clav [Augmentin 875-125 Tablet] 1 each PO BID #14 tablet 03/05/18 Ibuprofen [Motrin] 600 mg PO Q6H PRN tablet 03/05/18 Following Prescrptions Were Given to Patient: Amoxicillin/Potassium Clav [Augmentin 875-125 Tablet] 1 each PO BID #14 tablet Acetaminophen 1,000 mg PO TID PRN #1 tablet PRN Reason: Pain Primary Care Physician: Miguel Ángel Huffman MD [Primary Care Provider] - Within 1 Week Please Follow Up With: Katerina Castle MD - Spinal surgery When: 1-2 months. Disposition: Home Minutes spent on discharge:: 35 Patient Condition:: Good Medical Necessity - Tobacco Use Smoking Status: Never smoker Meaningful Use Info Meaningful Use Diagnoses (Choose all that apply): None applicable Code Visit OBSV E&M: 70459 Observation care discharge
[2018-03-05 16:20] VITALS: BP 124/68; PULSE 70; RESP 16; TEMP 36.7; O2SAT 99
--- NOTE | 2018-03-09 23:45 | ED.VISSUMM ---
- ER Visit Summary Date of Service: 03/09/18 Chief Complaint: [] Fevers chills left-sided neck swelling for 2 weeks History of Present Illness: The patient is a 37 M patient presents with the above. Patient actually stated for the last month he has had fevers on and off with chills. He is on amoxicillin for a suspected lymphadenitis in his left neck for the last 9 days with no significant change in the size of the lump. His temperature was 102.5 tonight. Physical Examination: [] Vital signs reviewed temperature 100.8 General: Well-nourished well-developed Head: Normocephalic atraumatic Eyes: Pupils equal round and reactive to light extraocular movements intact ENT: TMs clear no hemotympanum no trauma Neck: Left sided neck mass 1.5 x 1.5 inches with induration. Just below his left ear and left cervical lymph node region Cardiovascular: Regular rate rhythm no murmurs normal S1-S2 Respiratory: No distress clear to auscultation bilaterally chest nontender Abdomen: Soft nontender nondistended normal bowel sounds no masses Back: Nontender no CVA tenderness Extremities: Nontender active range of motion ?4 extremities no trauma Skin: Normal color no trauma Neuro alert oriented cranial nerves II through XII intact normal strength sensation reflexes Test Results: [] Emergency Department Course and Treatment: [] Lab work obtained. White count is 6000. Chemistry shows a calcium of 8.1. CT soft tissue neck shows a multiple sleep zone 5 swollen lymph nodes with fat haziness. I discussed this with the radiologist who feels this favors lymphadenitis. Patient given IV fluids and Zofran. Due to the fact that he has had recurrent fevers with failed outpatient IV antibiotic management I feel the patient should be admitted. Treatment Plan: [] Disposition: [] Impression: [] Left cervical lymphadenitis This note was generated with [employer] dictation software. It may contain incorrect words, spelling, and punctuation that were not noted in review of the chart prior to signing ED Disposition - Plan for ED Patient: Disposition: [facility]
--- OUTSIDE RECORDS SUMMARY | 2018-05-07 01:33 | XMS RPT_ITS ---
[...] RADHA 3:37 PM [facility] [place] [facility] Medical Records Department [facility] [place] [address] Discharge Summary 03/05/18 1533 MR#: [id number] Acct: [id number] Name: WADE ANDRADE Rep #: [id number] : 1980 37 From: Miguel Ángel Brambila DO PCP: Miguel Ángel Huffman MD Status: ADM IN Y Location: [place] [id number] Discharge Date and Diagnosis - Problem List [...] (Auto) Neut % (Auto) Lymph % (Auto) [place] % (Auto) Discharge Diet: No Restrictions Discharge [...] applicable Code Visit OBSV E AND M: 44861 Observation care discharge 03/05/18 1537 <Electronically signed by Miguel Ángel Brambila DO> Date Miguel Ángel Brambila DO Cosigner Signature (if applicable): Date CC: Miguel Ángel Brambila DO; Miguel Ángel Huffman MD Signed DISCHARGE INSTRUCTION Observed: 03/05/2018 Status: F Source: [place] 3:33 PM [facility] [place] Medical Records Department [address] [place] [address] Instructions for Home/Discharge Instructions 03/05/18 1531 MR#: [id number] Acct: [id number] Name: WADE ANDRADE Rep #: [id number] : 1980 37 From: Miguel Ángel Brambila [...] Signed CONSULTATION Observed: 03/05/2018 Status: F Source: [place] 12:07 PM [facility] [place] [facility] Medical Records Department [address] [place] [address] Consultation 03/05/18 1155 MR#: [id number] Acct: [id number] Name: WADE ANDRADE Rep #: [id number] : 1980 37 From: Huang Restrepo MD PCP: Miguel Ángel Huffman MD Status: ADM IN Y [place] [facility] Problem List (1) Cellulitis of neck Status: [...] (Auto) Neut % (Auto) Lymph % (Auto) [place] % (Auto) - Other Studies Radiology: [] [...] (ROUTINE) 8:34 AM [facility] [place] [facility] Imaging Services [address] [place] [address] Spine Cervical (Routine) MR#: [id number] Acct: [id number] Name: WADE ANDRADE Rep #: [id number] : 1980 M 37 From: Giuseppe Piper PCP: Miguel Ángel Huffman MD Status: ADM IN Study: Spine Cervical (Routine) Date of Exam: 03/05/18 Exam# [id number] Ordering Dr: Miguel Ángel Brambila DO STUDY: [...] Severe bilateral foraminal stenosis. Electronically Signed: Giuseppe Piepr MD at 12:44 EST Tel , Service support , CC: Miguel Ángel Huffman MD Day Spa Manager: Signed BASIC METABOLIC Collected: 03/05/2018 Status: F Source: RADHA PROFILE (BMP) 8:24 AM [facility] [place] TYPE CODE TESTS RESULT [...] Normal 7 Performed By: #### L500.2500 #### [facility] [address] [place], [address] CBC W/DIFF, AUTOMATED Collected: 03/05/2018 Status: F Source: RADHA 8:24 AM [facility] [place] TYPE CODE TESTS RESULT [...] LYMPHOPENIA NOTED. Performed By: #### L100.0100 #### [facility] [address] [place], [address] SOFT TISSUE NECK WITH Observed: 03/05/2018 Status: F Source: RADHA CONTRAST 6:17 AM [facility] [place] [facility] Imaging Services [address] [place] [address] Soft Tissue Neck WITH Contrast MR#: [id number] Acct: [id number] Name: WADE ANDRADE Rep #: [id number] : 1980 M 37 From: Andrea Polo MD PCP: Miguel Ángel Huffman MD Status: ADM IN Study: Soft Tissue Neck WITH Contrast Date of Exam: 03/05/18 Exam# [id number] Ordering Dr: Raulito Layne MD STUDY: CT [...] FINDINGS: Normal bilateral parotid glands. 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 Normal bilateral parapharyngeal spaces. Normal bilateral [...] Miguel Ángel Huffman MD; Raulito Layne MD Day Spa Manager: Signed BASIC METABOLIC Collected: 03/05/2018 Status: F Source: RADHA PROFILE (BMP) 1:55 AM [facility] TYPE CODE TESTS RESULT [...] GAP 9 Performed By: #### L500.2500 #### [facility] [address] [place], [place], [address] CBC W/DIFF, AUTOMATED Collected: 03/05/2018 Status: F Source: [place] 1:55 AM [facility] [place] TYPE CODE TESTS RESULT [...] Lymph 0.49 Performed By: #### L100.0100 #### [facility] [place], [address] CBC W/DIFF, AUTOMATED Collected: 03/03/2018 Status: F Source: [place] 4:18 PM [facility] TYPE CODE TESTS RESULT [...] 1.38 Performed By: #### L100.0100, L500.4050 #### [facility] [address] [place], [place], [address] COMPREHENSIVE METABOLIC Collected: 03/03/2018 Status: F Source: RADHA ZIEGLER 4:18 PM [facility] [place] TYPE CODE TESTS RESULT [...] 9 Performed By: #### L100.0100, L500.4050 #### [facility] [address] [place], [address] CRP Collected: 03/03/2018 Status: F Source: RADHA 4:18 PM [facility] REPOSITORY TYPE CODE TESTS RESULT OUT OF RANGE REFERENCE UNITS LAB L501.6710 0.0-3.0 mg/L High 21.30 C-REACTIVE PROT Result Comment: C-Reactive Protein (CRP) provides useful information for the diagnosis, therapy and monitoring of inflammatory processes and associated diseases. For the evaluation of Relative Risk for Cardiovascular Disease, a High Sensitivity CRP (HSCRP) should be ordered. Performed By: #### L501.6710 #### [facility] [address] [place], [address] ALLERGIES ALLERGIES DATE TYPE / CODE NAME / CODE REACTION SEVERITY SOURCE 03/05/2018 Drug No Known Unknown [facility] Allergy/4160 Allergies/F00 Hospital 17515(SNOMED 1673032(RXNOR Repository CT) M) ENCOUNTERS ENCOUNTERS ADMIT/DISCHARGE ACCOUNT ADMITTING ENCOUNTER LOCATION SOURCE NUMBER CLASS 03/05/2018/ [id number] Amos, Ambulatory Radha Radha 9 2 [facility] ing:[id number]: Repository [id number]: 1 03/05/2018 [id number] Amos, Ambulatory BMSBuilding:B [place] 7 [facility] Repository 03/03/2018 [id number] Ambulatory Radha Radha 1 [facility] ing:MFPLAB Repository PAYERS PAYERS ENCOUNTER GUARANTOR PAYER SUBSCRIBER SOURCE 03/05/2018 WADE Arthur [place] [id number] MILLER Insurance:MEDICAL GASSERDOB: [facility] [id number] Number: Repository [id number]: (363) [id number] [phone] (HP) Date:0029-08-00XY [address] [place] [phone]: 03/05/2018 Secondary NOT GIVENUNK Radha Insurance:SELF PAY [facility] Number: Effective Repository Date:2018-03-05 03/05/2018 WADE Hernandez Primary MERCEDES Arthur Radha [id number] MILLER Insurance:ANTHEMPolic GASSERDOB: Community [employer] y Number: [id number], [place] [id number] Repository [address]Tzv: ([phone]) Date:4354-76-65TM [phone] () [id number], [place] [address]YC: 03/05/2018 Secondary NOT GIVENUNK [place] Insurance:SELF PAY [facility] Number: Effective Repository Date:2018-03-05 03/03/2018 Wade Hernandez Primary Mercedes Radha [id number] E Insurance:ANTHEMPolic GasserDOB: Community [facility] y Number: [id number], [place] [id number] Repository [address]Fie: ([phone]) Date:2091-36-50ZV [phone] () [id number], [place] [address]DQ: 03/03/2018 Secondary NOT GIVENUNK Radha Insurance:SELF PAY [facility] Number: Effective Repository Date:2018-03-03
== END 2018-03-05 16:20 | disposition home or self-care (01) ==
LOC: ED 06:18 → MS2 06:21
PROVIDERS: Admitting Provider Internal Medicine; Emergency Provider Emergency Medicine; Family Provider Family Medicine; PCP Family Medicine; Referring Provider Internal Medicine
DX: L03.221 Cellulitis of neck (principal); M48.02 Spinal stenosis, cervical region; R20.2 Paresthesia of skin; R59.1 Generalized enlarged lymph nodes
CPT/HCPCS: 36415; 70491; 72141; 80048; 85025; 96361; 96365; 96367; 96372; 99218; J7030; Q9967; A4216; G0378; J0295

== ENCOUNTER 2018-03-14 11:59 | Day surgery (SDC) | payer OTHER, SELFPAY ==
[2018-03-14 12:25] VITALS: BP 126/87; PULSE 80; RESP 16; TEMP 37.4; O2SAT 97; BMI 25.0
--- NOTE | 2018-03-14 15:01 | OP.PCM_ITS ---
Problem List (1) Abscess of neck Status: Acute (2) Cellulitis of neck Status: Acute Report of Operation Date of Procedure: 03/14/18 Pre-Operative Diagnosis: Left posterior cervical mass Post-Operative Diagnosis: Left posterior cervical abscess Surgery/Procedure Performed:: Incision and drainage of left posterior neck abcess Description of Surgical Findings:: Will is a 37-year-old male presents with persistent left posterior cervical adenopathy. This had been treated with several courses of antibiotic therapy and failed to result in any improvement. A CT scan had been performed which showed a cluster of 3 enlarged lymph nodes in the area of palpable enlargement and given the failure of response to antibiotic therapy open biopsy for eval uation of atypical infection versus neoplastic processes was advised and he was eager to proceed. The risks, alternatives, potential benefits, and complications were discussed at length and any questions answered to the patient and/or caregiver's satisfaction. Witnessed informed consent was obtained in the office, and the patient and/or caregiver was agreeable to proceed. Procedure went as follows: The patient was identified in the preoperative holding brought to the operating room was placed under general anesthesia and intubated. When appropriate anesthesia obtained, the left neck was prepped and draped in sterile fashion and the planned incision site injected with 1% lidocaine with 100,000 epinephrine for a total of 3 cc. Using a 15 blade scalpel, an incision was then made posterior to the sternocleidomastoid through the skin and subcutaneous tissues. The platysma was then encountered. Upon transection a purulent cavity was immediately entered. Specimen was collected for culture and sensitivity as well as fungal and acid-fast stains. The wound cavity was then widely opened with the areas of loculation broken down and then irrigated with saline until clear purulent material. A Avery drain was then placed in the wound edges loosely closed with 3-0 nylon suture. An absorbent dressing was then applied. The patient was then returned to anesthesia having tolerated the procedure well. Type of Anesthesia:: General Anesthesiologist: Yuri Curry Special Medications: none Specimen's removed: culture neck abscess Drains: indu Estimated Blood Loss (mL): 5 mL Fluids Replaced: 800 mL Grafts/Implants Used: none - Complications none - Admit VTE Documentation VTE Present on Admission: No VTE Mechan Device Prophylaxis: SCD's VTE Pharm Prophylaxis ordered?: No
--- NOTE | 2018-03-14 15:09 | DCINST_ITS ---
- Discharge Diagnoses Current Active Problems: Current Active and Chronic Problems Abscess of neck (Acute) You will use the following diet at home:: Regular Discharge Activity: Return to Normal Activity, May not drive while taking narcotic pain medications. Call your doctor if your incision/area has: Increased Pain/ Swelling, Increased Redness, Foul Smelling Discharge Call your doctor if you observe: Fever of 101 or Higher, Uncontrolled pain Cleanse incision/area with: Keep Dressing Clean & Dry, - - change dressing when soiled Allergies/Adverse Reactions: Allergies No Known Allergies Allergy (Verified 03/05/18 07:36) Medications to take at Discharge Cephalexin [Keflex] 500 mg PO TID 03/14/18 Doxycycline 100 mg PO BID 03/14/18 Primary Care Physician: Miguel Ángel Huffman MD [Primary Care Provider] - Test Results: Test results from this visit will be discussed in further detail at your follow- up appointment, if applicable. Please Follow Up With: Miguel Ángel Felipe MD When: 1 week
[2018-03-14 15:17] VITALS: BP 126/87; BP 129/80; PULSE 69; RESP 16; TEMP 36.1; O2SAT 98
[2018-03-14 15:30] VITALS: BP 123/84; BP 126/87; PULSE 66; RESP 16; O2SAT 98
[2018-03-14 15:45] VITALS: BP 126/87; BP 132/84; PULSE 75; RESP 16; O2SAT 100
[2018-03-14 15:57] VITALS: BP 126/87; BP 132/85; PULSE 68; RESP 16; O2SAT 97
[2018-03-14] MEDS: Ibuprofen 200 MG Tablet 400 MG PO (16:29)
[2018-03-14 16:54] VITALS: BP 126/84; BP 126/87; PULSE 78; RESP 16; TEMP 36.6; O2SAT 99
== END 2018-03-14 17:12 | disposition home or self-care (01) ==
LOC: SDC 12:00 → AC 12:02
PROVIDERS: Family Provider Family Medicine; PCP Family Medicine; Referring Provider Otolaryngology; Visit Provider Otolaryngology
PROC: (CPT 38724; principal; 2018-03-14 13:25)
DX: L04.0 Acute lymphadenitis of face, head and neck (principal); Z79.2 Long term (current) use of antibiotics
CPT/HCPCS: 00320; 38300; 87015; 87070; 87075; 87102; 87116; 87205; 87206; J7120; J2405

== ENCOUNTER 2018-05-01 12:30 | Outpatient (RCR) | payer OTHER, SELFPAY ==
--- NOTE | 2018-03-12 17:58 | HP.PTEVAL_ITS ---
Patient's Visit Information HODAN ANDRADE is a 37 year old M referred to Physical Therapy by Miguel Ángel Huffman MD with a diagnosis of C6,7 FORMAINAL STENOSIS. Date of Evaluation: 03/12/18 Physical Therapist: Itzel Morales PT, Cert MDT - Visit Plan Frequency: 2-3x /Week Duration: 4-6 Weeks Plan: TEST FOR AND CONSIDER CERVICAL TX (THIS MIGHT BE DIFFICULT OR LIMITED WITH NECK SWELLING). POSTURE CORRECTION/STRENGTHENING, INSTRUCTION IN APPROPRIATE BODY MECHANICS AND ACTIVITY MODIFICATIONS. CHAO UE ROM, STRETCHING AND STRENGTHENING. HEP INSTRUCTION. - Subjective Findings: Diagnosis: C6-7 CERVICAL FORAMINAL STENOSIS. Work/Leisure: [employer]. ABOUT 80 HOURS A WEEK. Disability: NO. Present symptoms: LEFT SIDE OF NECK, RIGHT HAND NUMBNESS AND TINGLING, LEFT ARM, FOREARM, AND HAND PAIN, NUMBNESS AND TINGLING. Present since: ABOUT 3 WEEKS AGO. Pain Scale: Worst - 5/10 Least - 1/10. Currently: 03/23. UNCHANGING. Commenced as a result of: NO APPARENT REASON OTHER THAN THE FLU. SOME COUGHING WITH THE FLU. Symptoms at onset: PATIENT IS NOT SURE - MAYBE HANDS BEING NUMB OR TINGLY. Worse: HOLDING PHONE UP TO EAR WITH LEFT HAND, INCREASED USE OF LEFT UE. Better: UNKNOWN. Disturbed sleep: YES. Previous history/Previous treatment: HISTORY OF NECK PAIN AND STIFFNESS FOR A FEW YEARS TREATED BY CHIROPRACTOR AND MASSAGE. NO TREATMENT RECENTLY. Dizziness: NO. Tinnitis: NO. Nausea: NO. Shortness of Breath: NO. Difficulty Swollowing: NO. Gait: NORMAL. Accidents: NO. Unexplained weight loss: NO. Imagin03/05/18: MRI/Spine Cervical (Routine). IMPRESSION: C6/C7: Severe bilateral foraminal stenosis. PMH/Recent major surgery: GOT THE FLU ABOUT 4 WEEKS AGO. DID NOT GO TO THE DOCTOR UNTIL ABOUT 02/24/18 BECAUSE OF GRADUAL SWELLING IN LEFT NECK AND CHAO UE PAIN, NUMBNESS AND TINGLING THAT WAS WORSE THAN NOW AND KEEPING HIM UP AT NIGHT. DX'D WITH LYMPH INFECTION AND PUT ON ANTIBIOTIC. STATES HIS FEVER STARTED SPIKING EVERY NIGHT SO WENT TO ED 03/05/18 AND DID CAT SCAN AND MRI. DX'D WITH CELLULITIS OF THE NECK AND SEVERE STENOSIS. REFERRED TO SPINIAL SURGEON DR. KWONG BUT CAN'T GET IN. ADMITTED TO [facility] FOR ABOUT 12 HOURS - HAD 2 ROUNDS OF IV ANTIBIOTICS. SENT HOME ON ANTIBIOTICS. WENT BACK TO DR. HUFFMAN ON Saturday03/12/18 AND ANTIBIOTICS CHANGED AND REFERRED TO PT. SINCE SEEING DR. HUFFMAN THEY HAVE SINCE FOUND OUT THAT THERE REFERRAL IS NOT GOOD FOR DR. KWONG BECAUSE NOT FROM A PRIMARY CARE DOCTOR AND HAS TO HAVE PT FIRST. OTHER: NO TEMPURATURE SINCE SATURDAY. PLOF (Prior Level of Function): UNLIMITED BUT HAS HAD SOME NUMBNESS AND TINGLING IN LEFT UE THAT WOULD COME AND GO WHILE WORKING FOR A FEW MONTHS NOW. - Objective Sitting Posture/Standing Posture: POOR. VERY SLOUCHED. ROUNDED SHOULDERS. FORWARD HEAD. NO TORTICOLLIS. Active Correction of posture: NE. Other Observations: PATIENT HAS LARGE AREA OF SWELLING ALONG LEFT SIDE OF NECK. INDEP GAIT INTO PT WITHOUT ANY ASSISTIVE DEVICES. INDEP TRANSFERS. FOLLOWS COMMANDS WELL. Motor deficit: CHAO UE STRENGTH IS GROSSLY 5/5 WITH MMT'ING AND NO C/O INCREASED SYMPTOMS WITH TESTING UNTIL A FEW MINUTES AFTERWARDS. THEN PATIENT REPORTED A LITTLE BIT OF INCRASED TINGLING IN LEFT HAND. 56 LBS RIGHT AND 70 LBS LEFT (LEFT HAND DOMINANT). Sensory deficit: NO. ROM deficit: CHAO UE'S WFL. Reflexes: 2/3 CHAO UE'S. DURAL SIGNS: POSITIVE CHAO UE'S. Cervical Mvmt Loss: Flex: NIL. Pro: NIL. Ext: MIN TO MOD. Ret: MOD TO MICKI. RSB: MOD. LSB: MOD. R Rot: MOD. L Rot: MOD. MOST NECK MVMTS INCREASE LEFT NECK PAIN/DISCOMFORT. RETRACTION PROVOKES CENTRAL NECK PAIN. RIGHT ROT INCRASES LEFT HAND SX'S. Postural strength: POOR. Palpation: MILD TENDERNESS WITH PALPATION OF ENTIRE CERVICAL SPINE ESPECIALLY AT C567 REGION. NO THORACIC TENDERNESS. LEFT NECK SWELLING. - Goals Goal 1:: DECREASE C/O NECK AND CHAO UE SX'S. Goal Time Frame: 4-6 Weeks Goal 2:: IMPROVE REACHING, READING, NECK ROM AND WORK FUNCTION Goal Time Frame: 4-6 Weeks Goal 3:: INSTRUCT IN PROPHYLAXIS Goal Time Frame: 4-6 Weeks - Rehabilitation Potential Rehabilitation Potential: Fair - Anticipated Interventions Patient/Client Instruction: Educate patient on: Condition, Plan of Care, Risk Factors, Benefits of Fitness Program For the Purpose of:: To improve self management Therapeutic Exercise to Include: Strength training, Body mechanics, Postural training, Active ROM, Scapular Strength/Stabilization For the Purpose of:: To decrease pain, To increase ROM, To improve muscle performance and motor function, To increase tolerance to activity/condition/position, To improve ability of physical actions for home/community/work/leisure Manual Therapy Techniques to Include: Mobilization, Soft tissue mobilization For the Purpose of:: To decrease pain, To increase ROM, To improve nutrient delivery to tissue Thank you for the opportunity to evaluate your patient. For Medicare and Medicare HMO plans, please review the plan of care and approve it. It will need to be FAXED BACK to us at [phone] for Medicare purposes. For Medicare only, by signing this I certify the plan of care. Please let me know if there are questions or concerns regarding this plan of care. Physician Signature: Date:
--- NOTE | 2018-04-04 14:59 | HP.PTREVAL_ITS ---
Miguel Ángel Huffman MD, It has been my pleasure to treat HODAN ANDRADE over the last 7 visits for C6,7 FORMAINAL STENOSIS. Please see the progress note below for an update on the physical therapy plan of care! Subjective: PATIENT REPORTS HE IS DOING GOOD. PATIENT REPORTS HIS HANDS STILL FALL ASLEEP THOUGH LEFT > RIGHT. HE REPORTS THAT RIGHT NOW HIS RIGHT HAND ISN'T ASLEEP AND HIS LEFT HAND BARELY HAS ANY TINGLING BUT AT TIMES WITH CHORES HIS HANDS REALLY GO TO SLEEP - IT IS BETTER FOR SURE. PATIENT REPORTS HE CAN PRETTY MUCH DO EVERYTHING. HE IS LEFT HANDED BUT HE FEELS MORE STRENGTH IN THE RIGHT HAND AND HAS BEEN USING IT TO COMPENSATE FOR LEFT WEAKNESS FOR 6 MONTHS OR MORE. PATIENT REPORTS HIS LOW BACK HURT FOR ABOUT A WEEK LAST FALL FOR NO APPARENT REASON AND TRYING TO SIT UP STRAIGHT HURTS HIS LOW BACK. Objective/Function: PATIENT IS IMPOVING OVER-ALL EXCEPT LEFT BICYCLE RACER STRENGTH IS WEAKER TODAY THAN AT EVAL. CHAO UE STRENGTH IS GROSSLY 5/5 WITH MMT'ING AND TESTING STILL PROVOKES INCREASED HAND SX'S. 90 LBS RIGHT AND 60 LBS LEFT (LEFT HAND DOMINANT). Sensory deficit: CHAO UE INCLUDING HAND, LIGHT TOUCH SENSATION APPEARS INTACT AND SYMMETRICAL. ROM deficit: CHAO UE'S WFL. DURAL SIGNS: POSITIVE CHAO UE'S. Cervical Mvmt Loss: Flex: NIL. Pro: NIL. Ext: MIN - PROVOKES INCREASED LEFT HAND TINGLING. Ret: MOD - PRODUCES INCREASED CHAO HAND TINGLING. RSB: MOD. LSB: MOD. R Rot: MIN. L Rot: MOD. MOST NECK MVMTS INCREASE CENTRAL NECK PAIN/DISCOMFORT. RETRACTION PROVOKES CENTRAL NECK PAIN. RIGHT ROT INCRASES LEFT HAND SX'S. Postural strength: POOR. POSTURE CONTROL SEEMS TO BE AT LEAST SOMEWHAT LIMITED BY LOW BACK PAIN AND TIGHTNESS. Palpation: MILD TENDERNESS WITH PALPATION OF ENTIRE CERVICAL SPINE ESPECIALLY AT C567 REGION. NO THORACIC TENDERNESS. LEFT NECK SWELLING IS MUCH BETTER AND INCISION LOOKS TO BE WELL HEALING. OTHER: ABLE TO TEST MANUAL CERVICAL TX AND OCCIPITAL RELEASE TODAY WITHOUT GETTING CLOSE TO INCISION. PATIENT REPORTS IMMEDIATE DECREASE IN CHAO HAND SX'S WITH GENTLE MANUAL TX AND OCCIPITAL RELEASE. HAND SX'S REMAINED BETTER A RESULT OF GENTLE MANUAL THERAPY BUT TESTING TODAY PROVOKED HAND SX'S DESCRIBED ABOVE. RECOMMEND RE-ASSESSMENT BY FAMILY DOCTOR DUE TO CHAO HAND SX'S AND LEFT HAND WEAKNESS - PATIENT AGREEABLE. Plan Plan: RECOMMEND CONTINUED PT AND PATIENT AGREEABLE. CONT 3X'S A WEEK X 2 WEEKS. ASSESS RESPONSE TO MANUAL THERAPY. CONT PER POC INCORPORATING MANUAL THERAPY NOW TOLERATED MONITORING INCISION AND HAND SX'S CLOSELY. Goals Goal 1:: DECREASE C/O NECK AND CHAO UE SX'S. Goal Time Frame: 4-6 Weeks Goal 2:: IMPROVE REACHING, READING, NECK ROM AND WORK FUNCTION Goal Time Frame: 4-6 Weeks Goal 3:: INSTRUCT IN PROPHYLAXIS Goal Time Frame: 4-6 Weeks Anticipated Interventions Patient/Client Instruction: Educate patient on: Condition, Plan of Care, Risk Factors, Benefits of Fitness Program For the Purpose of:: To improve self management Therapeutic Exercise to Include: Strength training, Body mechanics, Postural training, Active ROM, Scapular Strength/Stabilization For the Purpose of:: To decrease pain, To increase ROM, To improve muscle performance and motor function, To increase tolerance to activity/cond ition/position, To improve ability of physical actions for home/community/work/leisure Manual Therapy Techniques to Include: Mobilization, Soft tissue mobilization For the Purpose of:: To decrease pain, To increase ROM, To improve nutrient delivery to tissue Please do not hesitate to contact me at [phone] by phone or if you have questions or concerns regarding this new plan of care! Sincerely, Itzel Morales, PT, Cert MDT
--- NOTE | 2018-05-01 13:24 | HP.PTREVAL ---
Miguel Ángel Huffman MD, It has been my pleasure to treat HODAN ANDRADE over the last 10 visits for C6,7 FORMAINAL STENOSIS. Please see the progress note below for an update on the physical therapy plan of care! Subjective: PATIENT REPORTS MISSING DAVI'TS DUE TO ILLNESS (LAST ATTENDED VISIT WAS 04/17/18). HE REPORTS HIS STOMACH WAS HURTING AND STILL IS. NO FEVER OVER 100. PATIENT REPORTS HE HAS IMPROVED WITH THERAPY BUT HE IS STILL HAVING TINGLING IN HIS FINGERS IN BOTH HANDS RIGHT > LEFT. NO PAIN IN ARMS BUT STATES HIS NECK IS SORE AND HE STILL GETS A STIFF NECK. STATES TRACTION HELPED. HAS NOT BEEN BACK TO SEE DR. HUFFMAN SINCE FEBRUARY PER PATIENT REPORT. STATES DR. SIMON SENT HIM TO DR. SHAVER AND DR. SHAVER DID THE PROCEEDURE ON HIS NECK MAR FIRST. FOLLOWED UP WITH DR. SHAVER TWICE WITH LAST FOLLOW UP THE END OF MAR. NOT SCHEDULED TO RETURN TO DR. SHAVER (EARS, NOSE AND THROAT DR.) UNTIL JUNE. MRI SHOWS C6C7 SEVERE STENOSIS. PATIENT REPORTS HE HAS BEEN HAVING TINGLING IN HIS FINGERS FOR ABOUT A YEAR NOW. WHEN THE TINGLING GETS SEVERE HIS HANDS FEEL WEAK. Objective/Function: PHYSICIAN RE-ASSESSMENT RECOMMENDED. CHAO UE STRENGTH IS GROSSLY 5/5 WITH MMT'ING AND TESTING STILL PROVOKES INCREASED HAND SX'S. 75 LBS RIGHT AND 70 LBS LEFT (LEFT HAND DOMINANT). Sensory deficit: CHAO UE INCLUDING HAND, LIGHT TOUCH SENSATION APPEARS INTACT AND SYMMETRICAL. ROM deficit: CHAO UE'S WFL. DURAL SIGNS: POSITIVE CHAO UE'S. Cervical Mvmt Loss: Flex: NIL. Pro: NIL. Ext: MIN - PROVOKES INCREASED NECK PAIN AND CHAO FINGER TINGLING. Ret: MOD - PRODUCES INCREASED CHAO HAND TINGLING AND INCREASES NECK PAIN. RSB: MOD - PRODUCES INCREASED RIGHT NECK PAIN. LSB: MOD. R Rot: MIN. L Rot: MIN. MOST NECK MVMTS INCREASE CENTRAL OR RIGHT NECK PAIN/DISCOMFORT. RETRACTION PROVOKES CENTRAL NECK PAIN. RIGHT ROT INCRASES LEFT HAND SX'S. Postural strength: POOR. POSTURE CONTROL SEEMS TO BE AT LEAST SOMEWHAT LIMITED BY LOW BACK PAIN AND TIGHTNESS. Palpation: MILD TENDERNESS WITH PALPATION OF ENTIRE CERVICAL SPINE ESPECIALLY AT C567 REGION. NO THORACIC TENDERNESS. LEFT NECK SWELLING IS MUCH BETTER AND INCISION STILL LOOKS GOOD. OTHER: ABLE TO TEST MANUAL CERVICAL TX AGAIN AND PATIENT REPORTS IMMEDIATE DECREASE IN CHAO HAND SX'S WITH GENTLE MANUAL TX. HAND SX'S REMAINED BETTER A RESULT OF GENTLE MANUAL THERAPY BUT TESTING TODAY PROVOKED HAND SX'S DESCRIBED ABOVE. RECOMMEND RE-ASSESSMENT BY FAMILY DOCTOR AGAIN DUE TO CHAO HAND SX'S AND LEFT HAND WEAKNESS - PATIENT AGREEABLE. NECK OSWESTRY SCORE HAS WORSENED SINCE LAST RECHECK AND IS CURRENTLY 4. Plan Plan: HOLD THERAPY UNTIL PHYSICIAN RE-CHECK. Goals Goal 1:: DECREASE C/O NECK AND CHAO UE SX'S. Goal Time Frame: 4-6 Weeks Goal Progress: Not Progressing Goal 2:: IMPROVE REACHING, READING, NECK ROM AND WORK FUNCTION Goal Time Frame: 4-6 Weeks Goal Progress: Not Progressing Goal 3:: INSTRUCT IN PROPHYLAXIS Goal Time Frame: 4-6 Weeks Goal Progress: Not Progressing Anticipated Interventions Patient/Client Instruction: Educate patient on: Condition, Plan of Care, Risk Factors, Benefits of Fitness Program For the Purpose of:: To improve self management Therapeutic Exercise to Include: Strength training, Body mechanics, Postural training, Active ROM, Scapular Strength/Stabilization For the Purpose of:: To decrease pain, To increase ROM, To improve muscle performance and motor function, To increase tolerance to activity/condition/position, To improve ability of physical actions for home/community/work/leisure Manual Therapy Techniques to Include: Mobilization, Soft tissue mobilization For the Purpose of:: To decrease pain, To increase ROM, To improve nutrient delivery to tissue Please do not hesitate to contact me at [phone] by phone or if you have questions or concerns regarding this new plan of care! Sincerely, Itzel Morales, PT, Cert MDT
--- NOTE | 2018-07-08 13:45 | HP.PTDCNRP_ITS ---
HP - Discharge Summary (1) - Patient Information HODAN ANDRADE was seen in my office for initial evaluation on 03/12/18. The following Plan of Care was established for this patient: Initial Frequency: 2-3x /Week Initial Duration: 4-6 Weeks - Anticipated Interventions Patient/Client Instruction: Educate patient on: Condition, Plan of Care, Risk Factors, Benefits of Fitness Program For the Purpose of:: To improve self management Therapeutic Exercise to Include: Strength training, Body mechanics, Postural training, Active ROM, Scapular Strength/Stabilization For the Purpose of:: To decrease pain, To increase ROM, To improve muscle performance and motor function, To increase tolerance to activity/condition/position, To improve ability of physical actions for h ome/community/work/leisure Manual Therapy Techniques to Include: Mobilization, Soft tissue mobilization For the Purpose of:: To decrease pain, To increase ROM, To improve nutrient delivery to tissue This patient was last seen in our office 05/01/18. Pertinent comments regarding their Physical therapy will appear below: This patient has not returned to Physical Therapy and is appropriate to return to MD for further follow-up as needed. At this point I will be discontinuing this patient from physical therapy. I would be happy to see this patient again in the future if found appropriate by the physician. Thank you! Itzel Morales, PT, Cert MDT
== END 2018-05-01 19:00 | disposition home or self-care (01) ==
LOC: PT 12:30
PROVIDERS: Family Provider Family Medicine; PCP Family Medicine; Referring Provider Family Medicine; Visit Provider Family Medicine
DX: M48.02 Spinal stenosis, cervical region (principal)
CPT/HCPCS: 97110; 97140; 97162; 97530